=== PATIENT | male | born 1990 | race Caucasian/White ===

== ENCOUNTER 2021-07-19 13:40 | Inpatient (IN) ==
[2021-07-19 18:44] LABS: Basophils % 0.3 % (0.0-0.8); Eosinophils # 0.2 10*3/uL (0.0-0.87); Eosinophils % 1.5 % (0.00-10.9); Hematocrit 46.1 VOL% (42.0-52.0); Hemoglobin 15.7 GM/DL (14.0-18.0); Immature Granulocytes % 0.4 %; Immature Granulocytes Absolute 0.05 #; Lymphocytes # 3.2 10*3/uL (1.4-4.0); Lymphocytes % 25.7 % (21.2-54.2); Mean Corpuscular HGB Conc 34.1 GM/DL (32-36); Mean Corpuscular Volume 86.7 FL (87-102); Mean Platelet Volume 11.8 FL (9.6-12.0); Monocytes # 0.8 10*3/uL (0.11-0.8); Monocytes % 6.5 % (1.7-12.7); Neutrophils % 65.6 % (38.7-73.9); Platelet Count 213 T/CUMM (130-400); Red Blood Count 5.32 MC/CUMM (3.8-5.5); White Blood Count 12.4 T/CUMM (4-12)
[2021-07-19 19:06] LABS: Alanine Aminotransferase 96 U/L (16-61); Albumin 3.7 G/DL (3.4-5.0); Alkaline Phosphatase 138 U/L (45-117); Aspartate Amino Transferase 37 U/L (0-37); Bilirubin,Total < 0.39 MG/DL (0.20-1.00); Blood Urea Nitrogen 9 MG/DL (7-18); Carbon Dioxide 25 MMOL/L (21-32); Chloride 108 MMOL/L (98-107); Estimated Glom Filtration Rate 122 ML/MIN; Glucose 147 MG/DL (74-106); Osmolality,Calculated 278.5 MOS/KG (273-304); Potassium 3.6 MMOL/L (3.5-5.1); Sodium 139 MMOL/L (136-145); Total Protein 7.6 G/DL (6.4-8.2)
[2021-07-19] MEDS ORDERED: ONDANSETRON 4 MG/2 ML VIAL IV STA (20:17)
[2021-07-19] MEDS ORDERED: HYDROmorphone 1 MG/1 ML SYRINGE IV STA (20:17)
[2021-07-19] MEDS ORDERED: metroNIDAZOLE INJ 500 MG/100 ML PREMIX IV STA (20:19)
[2021-07-19] MEDS ORDERED: LEVOFLOXACIN INJ 750 MG/150 ML PREMIX IV STA (20:19)
[2021-07-19] MEDS ORDERED: ONDANSETRON 4 MG/2 ML VIAL IV PRN (20:21)
[2021-07-19] MEDS ORDERED: PROMETHAZINE 25 MG/1 ML VIAL IM PRN (20:21)
[2021-07-19] MEDS ORDERED: ACETAMINOPHEN 325 MG TABLET PO PRN (20:21)
[2021-07-19] MEDS: LACTATED RINGERS 1,000 ML IV SCH (22:24)
[2021-07-20 04:39] LABS: Basophils % 0.4 % (0.0-0.8); Eosinophils # 0.2 10*3/uL (0.0-0.87); Hematocrit 42.7 VOL% (42.0-52.0); Hemoglobin 14.2 GM/DL (14.0-18.0); Immature Granulocytes % 0.4 %; Immature Granulocytes Absolute 0.04 #; Lymphocytes # 3.3 10*3/uL (1.4-4.0); Lymphocytes % 34.5 % (21.2-54.2); Mean Corpuscular HGB Conc 33.3 GM/DL (32-36); Mean Corpuscular Volume 88.4 FL (87-102); Mean Platelet Volume 11.6 FL (9.6-12.0); Monocytes # 0.7 10*3/uL (0.11-0.8); Monocytes % 7.7 % (1.7-12.7); Platelet Count 190 T/CUMM (130-400); Red Blood Count 4.83 MC/CUMM (3.8-5.5); White Blood Count 9.7 T/CUMM (4-12)
[2021-07-20] MEDS: metroNIDAZOLE INJ 500 MG/100 ML PREMIX IV SCH ×3 (05:09→21:16)
[2021-07-20] MEDS ORDERED: CLINDAMYCIN INJ 900 MG/50 ML PREMIX IV ONE ×2 (10:02→17:55)
[2021-07-20] MEDS ORDERED: SEVOFLURANE 1 UNIT/15 MINUTE INH ONE (16:23)
[2021-07-20] MEDS ORDERED: ROCURONIUM 50 MG/5 ML VIAL IV ONE (16:23)
[2021-07-20] MEDS ORDERED: MIDAZOLAM 2 MG/2 ML VIAL ONE (16:23)
[2021-07-20] MEDS ORDERED: LIDOCAINE 2% 5 ML VIAL ONE (16:23)
[2021-07-20] MEDS ORDERED: fentaNYL 100 MCG/2 ML VIAL ONE (16:23)
[2021-07-20] MEDS ORDERED: propofoL 200 MG/20 ML VIAL IV ONE (16:23)
[2021-07-20] MEDS ORDERED: TISSUE ADHESIVE 1 EACH APPLICATOR TOP ONE ×2 (17:45→18:24)
[2021-07-20] MEDS ORDERED: GLYCOPYRROLATE 0.4 MG/2 ML VIAL ONE (18:18)
[2021-07-20] MEDS ORDERED: NEOSTIGMINE 10 MG/10 ML VIAL ONE (18:18)
[2021-07-20] MEDS ORDERED: PROMETHAZINE INJ 25 MG in SODIUM CHLORIDE 0.9% 50 ML IV PRN (18:22)
[2021-07-20] MEDS ORDERED: MEPERIDINE 25 MG/1 ML VIAL IV PRN (18:22)
[2021-07-20] MEDS ORDERED: HYDROmorphone 1 MG/1 ML SYRINGE IV PRN (18:22)
[2021-07-20] MEDS ORDERED: ONDANSETRON 4 MG/2 ML VIAL IV PRN (18:22)
[2021-07-20] MEDS ORDERED: diphenhydrAMINE 50 MG/1 ML VIAL IV PRN (18:22)
[2021-07-20] MEDS ORDERED: ACETAMINOPHEN 325 MG TABLET PO PRN (18:37)
[2021-07-20] MEDS ORDERED: LORazepam 2 MG/1 ML VIAL ONE (18:48)
[2021-07-20] MEDS ORDERED: LORazepam 2 MG/1 ML VIAL IV ONE (18:51)
[2021-07-20] MEDS: LACTATED RINGERS 1,000 ML IV SCH ×3 (20:05→21:13)
[2021-07-20] MEDS: PANTOPRAZOLE 40 MG TABLET PO SCH (20:06)
[2021-07-20] MEDS: LEVOFLOXACIN INJ 750 MG/150 ML PREMIX IV SCH (22:24)
[2021-07-21] MEDS: metroNIDAZOLE INJ 500 MG/100 ML PREMIX IV SCH ×3 (04:04→20:32)
[2021-07-21 05:50] LABS: Basophils % 0.2 % (0.0-0.8); Eosinophils # 0.1 10*3/uL (0.0-0.87); Eosinophils % 0.4 % (0.00-10.9); Hematocrit 43.3 VOL% (42.0-52.0); Hemoglobin 14.5 GM/DL (14.0-18.0); Immature Granulocytes % 0.6 %; Immature Granulocytes Absolute 0.07 #; Lymphocytes # 1.4 10*3/uL (1.4-4.0); Mean Corpuscular HGB Conc 33.5 GM/DL (32-36); Mean Corpuscular Volume 87.8 FL (87-102); Mean Platelet Volume 12.4 FL (9.6-12.0); Monocytes # 0.9 10*3/uL (0.11-0.8); Monocytes % 6.9 % (1.7-12.7); Neutrophils % 80.9 % (38.7-73.9); Platelet Count 195 T/CUMM (130-400); Red Blood Count 4.93 MC/CUMM (3.8-5.5); Red Cell Distribution Width 12.8 % (9.3-17.3); White Blood Count 12.3 T/CUMM (4-12)
[2021-07-21 06:04] LABS: Albumin 3.2 G/DL (3.4-5.0); Bilirubin,Total 0.9 MG/DL (0.20-1.00); Osmolality,Calculated 275.5 MOS/KG (273-304); Potassium 3.8 MMOL/L (3.5-5.1); Total Protein 6.6 G/DL (6.4-8.2)
[2021-07-21] MEDS ORDERED: PANTOPRAZOLE 40 MG TABLET PO SCH (09:00)
[2021-07-21] MEDS: LEVOFLOXACIN INJ 750 MG/150 ML PREMIX IV SCH (09:36)
[2021-07-21] MEDS: LACTATED RINGERS 1,000 ML IV SCH ×2 (09:36→21:11)
[2021-07-21] MEDS: PANTOPRAZOLE 40 MG TABLET PO SCH (11:46)
[2021-07-21] MEDS: HYDROmorphone 1 MG/1 ML SYRINGE IV PRN (20:54)
[2021-07-22] MEDS: LACTATED RINGERS 1,000 ML IV SCH (04:38)
[2021-07-22] MEDS: metroNIDAZOLE INJ 500 MG/100 ML PREMIX IV SCH (04:39)
[2021-07-22 05:36] LABS: Basophils % 0.4 % (0.0-0.8); Eosinophils # 0.2 10*3/uL (0.0-0.87); Hematocrit 43.3 VOL% (42.0-52.0); Hemoglobin 14.4 GM/DL (14.0-18.0); Immature Granulocytes % 0.5 %; Immature Granulocytes Absolute 0.05 #; Lymphocytes # 2.1 10*3/uL (1.4-4.0); Mean Corpuscular HGB Conc 33.3 GM/DL (32-36); Mean Corpuscular Volume 88.5 FL (87-102); Mean Platelet Volume 12.3 FL (9.6-12.0); Neutrophils % 67.1 % (38.7-73.9); Platelet Count 180 T/CUMM (130-400); Red Blood Count 4.89 MC/CUMM (3.8-5.5); Red Cell Distribution Width 12.7 % (9.3-17.3); White Blood Count 10.4 T/CUMM (4-12)
[2021-07-22 05:43] LABS: PT Patient Result 10.9 SECS (10.5-12.0)
[2021-07-22 05:50] LABS: Albumin 3.1 G/DL (3.4-5.0); Bilirubin,Total 0.7 MG/DL (0.20-1.00); Calcium 9.1 MG/DL (8.5-10.1); Osmolality,Calculated 274.7 MOS/KG (273-304); Potassium 3.6 MMOL/L (3.5-5.1); Total Protein 6.5 G/DL (6.4-8.2)
[2021-07-22] MEDS: HYDROmorphone 1 MG/1 ML SYRINGE IV PRN (07:50)
[2021-07-22] MEDS ORDERED: INDOMETHACIN SUPP 50 MG SUPP RECTAL ONE (08:00)
[2021-07-22] MEDS ORDERED: LACTATED RINGERS 1,000 ML IV SCH (08:00)
[2021-07-22] MEDS: LEVOFLOXACIN INJ 750 MG/150 ML PREMIX IV SCH (08:58)
[2021-07-22] MEDS: PANTOPRAZOLE 40 MG TABLET PO SCH (10:02)
[2021-07-22] MEDS ORDERED: SUCCINYLCHOLINE 200 MG/10 ML VIAL ONE (11:16)
[2021-07-22] MEDS ORDERED: SEVOFLURANE 1 UNIT/15 MINUTE INH ONE ×2 (11:16→11:54)
[2021-07-22] MEDS ORDERED: ONDANSETRON 4 MG/2 ML VIAL ONE (11:16)
[2021-07-22] MEDS ORDERED: propofoL 200 MG/20 ML VIAL IV ONE (11:16)
[2021-07-22] MEDS ORDERED: LIDOCAINE 2% 5 ML VIAL ONE (11:16)
[2021-07-22] MEDS ORDERED: fentaNYL 100 MCG/2 ML VIAL ONE (11:17)
[2021-07-22] MEDS ORDERED: MIDAZOLAM 2 MG/2 ML VIAL ONE (11:17)
[2021-07-22] MEDS ORDERED: PHENYLEPHRINE 1 MG/10 ML SYRINGE IV ONE (11:41)
[2021-07-22] MEDS ORDERED: ePHEDrine 50 MG/ML VIAL ONE (11:53)
[2021-07-22] MEDS ORDERED: DEXAMETHASONE 4 MG/1 ML VIAL ONE (11:59)
[2021-07-22] MEDS ORDERED: GLYCOPYRROLATE 0.4 MG/2 ML VIAL ONE (12:01)
[2021-07-22] MEDS ORDERED: NEOSTIGMINE 10 MG/10 ML VIAL ONE (12:02)
[2021-07-22 12:44] VITALS: BP 114/073
== END 2021-07-22 13:15 | disposition home or self-care (01) | DRG 418 ==
LOC: N.ED 13:40 → N.EDINP 13:40 → N.3E 07-20 15:38
PROVIDERS: ADMIT Student in an Organized Health Care Education/Training Program; ATTEND Student in an Organized Health Care Education/Training Program
PROC: LAPCHOL (2021-07-20 17:05)